=== PATIENT | female | born 1975 | race Two or more races ===

== ENCOUNTER 2018-01-17 17:43 | Emergency (ER) | payer BC, OTHER ==
--- NOTE | 2018-01-17 17:56 | EDPHY ---
H & P Smoking Status: Never smoked Time Seen by Provider: 01/17/18 17:55 HPI/ROS: CHIEF COMPLAINT: Syncope HISTORY OF PRESENT ILLNESS: The patient is a 42-year-old female with no significant past medical history here with complaint of syncopal event approximately 1 hr prior to arrival. She states that she flew in from [place] this morning to visit a friend and hospital who was diagnosed with cancer. She was standing in the room with her friend listening to a doctor speak to her friend when she became dizzy and lightheaded. She got on her knees and continued to feel dizzy and then passed out hit the back of her head. She is uncertain how long she passed out for. She denies any chest pain or shortness of breath preceding her syncopal event and currently has no chest pain or shortness of breath. She has no history of heart failure, Brugada, arrhythmia, pulmonary embolism. She does take control but no other prescribed medications and denies any drug or alcohol use. She has noticed no leg swelling. REVIEW OF SYSTEMS: Constitutional: No fever, no chills. Eyes: No discharge. ENT: No sore throat. Cardiovascular: No chest pain, no palpitations. Respiratory: No cough, no shortness of breath. Gastrointestinal: No abdominal pain, no vomiting. Genitourinary: No hematuria. Musculoskeletal: No back pain. Skin: No rashes. Neurological: No headache. (Jcarlos Betancur) Physical Exam: General Appearance: Alert and no distress. head: No Cavazos signs, no raccoon eyes, no hemotympanum. No scalp hematoma. ENT: normal dentition. No tonsillar exudate or swelling. Eyes: Pupils equal and round no injection. Respiratory: Chest is nontender, lungs are clear to auscultation. Cardiac: regular rate and rhythm. No lower extremity edema Gastrointestinal: Abdomen is soft and nontender, no masses, bowel sounds normal. Musculoskeletal: Neck is supple and nontender. Extremities have full range of motion and are nontender without deformity Skin: No rashes or lesions. Neuro: Cranial nerves grossly intact. No nystagmus. Normal [id number] testing. No ulnar drift. Equal grasp bilateral hands. Ambulatory. (Jcarlos Betancur) Constitutional: Initial Vital Signs Temperature (C) 36.8 C 01/17/18 17:46 Heart Rate 83 01/17/18 17:46 Respiratory Rate 17 01/17/18 17:46 Blood Pressure 122/79 H 01/17/18 17:46 O2 Sat (%) 97 01/17/18 17:46 O2 Delivery Mode Room Air Allergies/Adverse Reactions: No Known Allergies Allergy (Unverified 01/17/18 17:45) Home Medications: Medication Instructions Recorded Bcp 01/17/18 Medical Decision Making - Diagnostics EKG Interpretation: 12 lead EKG is interpreted in [place] by emergency department physician. Normal sinus rhythm. (Karie Beal) ED Course/Re-evaluation: 42-year-old female here with syncopal event. History and physical and lab findings are most consistent with orthostatic syncopal event. There is no evidence of arrhythmia, ACS, severe dehydration, improved got a, CVA. Patient feels much improved after oral hydration. She declined IV hydration. She is requesting discharge home. Patient discharged in stable condition. (Jcarlos Betancur) The patient was evaluated and managed by the physician plastic surgery assistant. I have reviewed this chart and I agree with the findings and plan of care as documented , as indicated by my signature. I am the secondary supervising physician. ( Karie Beal) Differential Diagnosis: Arrhythmia, Brugada, dehydration, pulmonary embolism, ACS (Jcarlos Betancur) - Data Points Laboratory Results: Laboratory Results 01/17/18 18:25 01/17/18 18:25 Medications Given: Discontinued Medications Sodium Chloride (Ns) 1,000 mls @ 0 mls/hr IV EDNOW ONE; Wide Open PRN Reason: Protocol Stop: 01/17/18 18:06 Last Admin: 01/17/18 18:20 Dose: Not Given Point of Care Test Results: Chemistry 01/17/18 18:29 POC Troponin I 0.00 ng/mL ng/mL (0.00-0.08) Departure - Departure Disposition: Home, Routine, Self-Care Clinical Impression: Orthostatic syncope Condition: Good Instructions: Syncope (ED) Additional Instructions: Return to the ER if he develops any numbness or weakness anywhere in her body, chest pain, shortness of breath, leg swelling or any other worrisome symptoms. Referrals: NONE *PRIMARY CARE P,. [Primary Care Provider] - As per Instructions [facility],. [Clinic] - As per Instructions
[2018-01-17] MEDS ORDERED: NS 1,000 ML IV ONE (18:05)
[2018-01-17 18:35] LABS: PLATELET COUNT 359 10^3/uL (150-400)
[2018-01-17 19:12] VITALS: BP 103/69
--- NOTE | 2018-01-17 21:44 | CPEKG ---
Test Reason : OPEN Blood Pressure : / mmHG Vent. Rate : 081 BPM Atrial Rate : 082 BPM P-R Int : 160 ms QRS Dur : 070 ms QT Int : 382 ms P-R-T Axes : 018 030 032 degrees QTc Int : 444 ms Sinus rhythm Confirmed by Casey Moreno ([id number]) on 01/17/2018 9:43:53 PM Referred By: Confirmed By:Casey Moreno
== END 2018-01-17 19:31 | disposition home or self-care (01) ==
DX: R55 Syncope and collapse (principal)
CPT/HCPCS: 84484-PO